=== PATIENT | female | born 1950 | race American Indian/Alaskan Native ===

== ENCOUNTER 2016-10-12 11:03 | Emergency (ER) | payer MEDICARE ==
[2016-10-12 11:08] VITALS: BMI 20.9
[2016-10-12 11:09] VITALS: BP 133/72; PULSE 89; RESP 18; TEMP 97.7; O2SAT 99
--- NOTE | 2016-10-12 11:33 | C.PDOC ---
History Of Present Illness 65 y/o female c/o redness and itching all along hairline since Friday after having her hair colored in a salon. no fevers. c/o mild discomfort to scalp. Time Seen by Provider: 10/12/16 11:20 Chief Complaint (Nursing): Allergic Reaction Past Medical History Reviewed: Historical Data, Nursing Documentation, Vital Signs Vital Signs: Last Vital Signs Temp 97.7 F 10/12/16 11:08 Pulse 89 10/12/16 11:08 Resp 18 10/12/16 11:08 BP 133/72 10/12/16 11:08 Pulse Ox 99 10/12/16 11:43 - Medical History PMH: Other PMH: seasonal allergies Surgical History: Endoscopy - [facility] Procedures ENDOSC POLYPECTOMY OF LG INTEST (02/21/14) Family History: States: Unknown Family Hx - Social History Hx Tobacco Use: No Hx Alcohol Use: No Hx Substance Use: No - Immunization History Hx Tetanus Toxoid Vaccination: No Hx Influenza Vaccination: Yes Hx Pneumococcal Vaccination: Yes Review Of Systems Constitutional: Negative for: Fever, Chills ENT: Negative for: Ear Pain, Nose Congestion, Mouth Swelling, Throat Swelling Skin: Positive for: Rash Physical Exam - Physical Exam Appears: Non-toxic, No Acute Distress Skin: Normal Color, Warm, Dry, Rash (mild erythematous rash extending approx 2 cm around hairline on forehead, continues behind ears and to back of neck; rash extends approx 6 cm on back of neck from hairline. ) Head: Atraumatic, Normacephalic Eye(s): bilateral: Normal Inspection Nose: Normal Oral Mucosa: Moist Throat: Normal ED Course And Treatment O2 Sat by Pulse Oximetry: 99 Disposition Counseled Patient/Family Regarding: Diagnosis, Need For Followup, Rx Given - Disposition Referrals: Corine Patterson MD [Staff Provider] - Disposition: HOME/ ROUTINE Disposition Time: 11:30 Condition: GOOD Additional Instructions: Do not put any products into your hair until rash clears up. Recommend that you wash out whatever products are in your hair now. Continue taking Benadryl. Take steroids as prescribed. Follow up with Dr Patterson in a few days. Return to ER for any worsening symptoms. Prescriptions: Methylprednisolone [Medrol Dose Pack (21 tabs)] 4 mg PO DAILY #21 mg Instructions: Contact Dermatitis (ED) Forms: General Discharge Instructions - Clinical Impression Clinical Impression: Contact allergic reaction
== END 2016-10-12 11:35 | disposition home or self-care (01) ==
LOC: C.ER 11:03
DX: L23.9 Allergic contact dermatitis, unspecified cause (principal)

== ENCOUNTER 2016-11-27 10:07 | Day surgery (SDC) | payer MEDICARE ==
[2016-11-27 10:27] VITALS: BMI 21.1
[2016-11-27 10:54] VITALS: O2SAT 100
--- NOTE | 2016-11-27 14:07 | CP.SDSHP ---
Same Day Surgery H & P - History Proposed Procedure: US guided FNA of thyroid nodule Pre-Op Diagnosis: Thyroid nodules - Allergies Allergies: Allergies hair dye Allergy (Uncoded 10/12/16 11:07) hair dye rinse Allergy (Uncoded 10/12/16 11:07) - Physical Exam Vital Signs: Vital Signs 11/27/16 10:25 Temperature 98.1 F Pulse Rate 62 Respiratory 20 Rate Blood Pressure 165/68 H O2 Sat by Pulse 100 Oximetry - Impression Impression: Pt with multinodular goiter and referred for FNA of dominant left thyroid nodule. Plan US guided FNA. Pt. Evaluated Today:Candidate for Anesthesia & Procedure: No - Date & Time Date: 11/27/16 Time: 13:40 Short Stay Discharge - Short Stay Discharge Admitting Diagnosis/Reason for Visit: THYROID MASS Disposition: HOME/ ROUTINE
--- NOTE | 2016-11-27 14:09 | PCM.SURG1 ---
Surgeon's Initial Post Op Note - Surgeon's Notes Surgeon: Luis Miguel Tirado MD Television Mechanic: NONE Type of Anesthesia: Local Pre-Operative Diagnosis: Multinodular goiter Operative Findings: US showed multiple left and right thyroid nodules Post-Operative Diagnosis: Multinodular goiter Operation Performed: US guided FNA of left thyroid nodules Specimen/Specimens Removed: 25 FNA x 4 passes per nodule Estimated Blood Loss: EBL {In ML}: 0 Blood Products Given: N/A Drains Used: No Drains Post-Op Condition: Good Date of Surgery/Procedure: 11/27/16 Time of Surgery/Procedure: 13:55
[2016-11-27 14:53] VITALS: BP 156/75; PULSE 66; RESP 18; TEMP 97.8
--- NOTE | 2016-11-28 10:58 | US ---
PROCEDURE: Date of Procedure: 11/27/2016 PROCEDURE: 1. Ultrasound guided FNA of left thyroid nodules, CPT 81723 2. Ultrasound guidance for FNA, [id number] Medications: 4cc 1% Lidocaine HISTORY: Enlarged left thyroid nodules. TECHNIQUE: Following informed consent and procedure time-out, a limited ultrasound patient's neck confirmed the presence heterogeneous thyroid gland with multiple nodules throughout. Two nodules described in the ultrasound report were not clearly seen. It is believed that measurements may represent an area of the thyroid rather than actual nodules. Due to area measures and previous ultrasound were not identified and selected for FNA.. After the patient's neck was prepped and draped in the usual sterile fashion, the skin was anesthetized with 1% lidocaine. Ultrasound-guided fine needle aspiration was then performed of the upper pole left thyroid nodule followed by the lower pole thyroid nodule. A total of 4 passes were made into each nodule with 25 gauge needle under ultrasound guidance. The FNA specimen was sent for routine pathology. Post biopsy ultrasound showed no hematoma. IMPRESSION: Ultrasound-guided FNA of the dominant left thyroid nodules.
== END 2016-11-27 14:20 | disposition home or self-care (01) ==
LOC: C.SPRAD 10:07
PROVIDERS: ATTEND Radiology Vascular & Interventional Radiology
DX: E04.2 Nontoxic multinodular goiter (principal)